=== PATIENT | female | born 1970 | race Caucasian/White ===

== ENCOUNTER 2021-02-01 11:48 | Emergency (ER) | payer MEDICAID, SELFPAY ==
[2021-02-01 11:56] VITALS: BP 136/82; BP 144/88; PULSE 82; PULSE 96; RESP 18; TEMP 36.8; O2SAT 99; BMI 40.4
--- NOTE | 2021-02-01 12:44 | ED.GENADULT ---
HPI - General Adult General Chief complaint: Psychiatric Symptoms Stated complaint: crisis Time Seen by Provider: 02/01/21 12:32 Source: patient Mode of arrival: EMS Limitations: no limitations History of Present Illness HPI narrative: 50-year-old female who presents emergency department for evaluation of depression and suicidal ideation. Patient states that she has been depressed for approximately 3 days. She states that her depression became worse last night to the point where she wants to kill herself. She states that she plans on stabbing herself with a knife. She states that she has had multiple suicide attempts in the past, she states she has tried to jump in front of a car, she has tried to take an overdose of pills and she has tried to drink herself to . Patient states that she has been hospitalized for psychiatric condition in the past and was hospitalized approximately 6 months prior at [facility]. The patient states that she lives in [facility] she states she staying in a women's senior care. She states she came to [place] to go to bars in clubs with her friends. She states that her friends left ear here in [place] and she has been staying with some people that she met in [place]. She states that she has been drinking heavily, 1 pt vodka per day for the last 3 days and this is made her depression worse. She also states that she used crack cocaine for 1 day, 3 days prior to evaluation. She believes that the cocaine uses made her depression worse as well. She denied fever, chills, chest pain, shortness of breath, nausea, vomiting or diarrhea. Patient does have a history of depression and PTSD. Related Data Home Medications Medication Instructions Recorded Confirmed albuterol sulfate [ProAir HFA] 2 puff INHALATION Q4H PRN 02/01/21 02/01/21 nncxgkmyr-hosqctvz-fgvchhx ala 1 tab PO DAILY 02/01/21 02/01/21 [Biktarvy] folic acid 1 tab PO DAILY 02/01/21 02/01/21 gabapentin 1 cap PO TID 02/01/21 02/01/21 lidocaine [Lidoderm] 1 patch TOPICAL DAILY 02/01/21 02/01/21 pantoprazole 1 tab PO DAILY 02/01/21 02/01/21 prazosin 1 cap PO DAILY 02/01/21 02/01/21 quetiapine 1 tab PO BEDTIME 02/01/21 02/01/21 Allergies Allergy/AdvReac Type Severity Reaction Status Date / Time No Known Allergies Allergy Verified 02/01/21 12:41 Review of Systems Review of Systems: Yes all other systems are reviewed and are negative [facility] Past Medical History [facility] Narrative: Patient has a history of HIV disease, stomach ulcers, depression, PTSD, sciatica. She does smoke 1 pack of cigarettes per day times many years, she drinks alcohol and she states she has been binge drinking recently, she states she has crack code cane for 1 day 3 days prior to evaluation. She lives in a women's senior care in [facility]. Medical History Depression ETOH abuse HIV (human immunodeficiency virus infection) Sciatic leg pain Surgical History Tubal ligation status Social History Social History Alcohol intake: current Alcohol intake frequency: other Alcohol type: hard liquor Smoking Status: Current every day smoker Smoked in Last 30 Days: Yes Use of substances other than those prescribed or required for medical reasons: Yes Substance Use Type: Crack/Cocaine Substance Use Frequency: Occasionally Last Used Substance: Days (ago) Any prior treatment program specific to substance use: Yes Advance Directives: No Advance Directives Information Provided: Yes Physical Exam Vital Signs: Vital Signs: Last Vital Signs Temp 97.6 F 02/01/21 16:08 Pulse 101 H 02/01/21 16:08 Resp 18 02/01/21 16:08 BP 116/71 02/01/21 16:08 Pulse Ox 97 02/01/21 16:08 Body Mass Index 40.4 Const: General: cooperative, no acute distress, alert and awake Orientation/consciousness: oriented to person and oriented to place Limitations: no limitations HENMT: Head: Yes normal to inspection, Yes normocephalic and Yes atraumatic Ears: external ears normal Eyes: General: appearance normal, both eyes and all related structures Periorbital: periorbital findings normal Eyelids: Yes eyelids normal Conjunctivae: conjunctivae normal Sclerae: sclerae normal Corneas: corneas normal Pupils: Equal, round and reactive pupils present Direct Ophthalmoscopy: normal light reflex Neck: Neck: Yes normal visual inspection and Yes supple Lymphatic: no lymphadenopathy noted Chest: Chest palpation & inspection: normal inspection of the chest and normal palpation of entire chest wall Resp: Effort & Inspection: normal respiratory effort, abnormal respiratory pattern, no audible wheezes and no respiratory distress Auscultation: clear to auscultation bilaterally, no crackles, no rales, no rhonchi and no wheezes Cardio: Rate: regular rate Rhythm: regular rhythm Heart sounds: S1 normal heart sound present, S2 normal heart sound present and Murmur heart sound present GI: Inspection: No distended Palpation (GI): Soft to palpation, nontender, no guarding and No hepatosplenomegaly present Auscultation: normal bowel sounds : General: Yes no CVA tenderness Back/Spine/Pelvis: Back: no CVA tenderness Skin: General skin exam: no rashes or lesions noted Lesions: no lesions Rashes: no rashes Wounds: no wounds Neuro: General: oriented to person and oriented to place Cranial nerves: Yes CN's II-XII intact bilaterally and Yes Equal, round and reactive pupils present Cognition (Neuro): normal cognition Motor exam (neuro): 5/5 motor strength present throughout Extrem: General: Yes normal to inspection, Yes full ROM, Yes no pedal edema and Yes no calf tenderness Psych: Appearance: grossly normal Mental Status: mental status grossly normal Speech and movement: Clear speech present Affect: normal affect Thought process: Normal thought process present Course Course Course Narrative: 50-year-old female with history of depression, PTSD, alcohol use disorder and cocaine use disorder who presents emergency department for evaluation of depression x3 days and suicidal ideation x1 day with a plan to stab herself. Patient is also complaining of left hip pain secondary to her sciatica and she states that she has not taken her medications in 3 days. Patient's physical examination was unremarkable. I did order a urine test and urine tox screen on the patient. The patient's pain will be treated with Tylenol 975 mg orally and gabapentin 1200 mg orally (this is the dose of gabapentin that she takes as an outpatient for her sciatica). She was also given a nicotine patch. The patient is medically cleared and will need to be evaluated by crisis. 1634: The patient's urinalysis was positive for benzodiazepines and cocaine. Urine test was negative. The patient is waiting for crisis evaluation. At the end of my shift, the patient's care was turned over to my colleague, Dr. Hernandez. Medical Decision Making Lab Data Labs: Lab Results 02/01/21 02/01/21 Range/Units 15:33 15:33 Urine Test NEGATIVE (NEGATIVE) Urine Opiates Screen Not Detected (Not Detect) Ur Barbiturates Screen Not Detected (Not Detect) Ur Phencyclidine Scrn Not Detected (Not Detect) Ur Amphetamines Screen Not Detected (Not Detect) U Benzodiazepines Scrn POSITIVE H (Not Detect) Urine Cocaine Screen POSITIVE H (Not Detect) U Marijuana (THC) Screen Not Detected (Not Detect) Discharge Plan Discharge Prescriptions: No Action gabapentin 400 mg capsule 1 cap PO TID RF: 0 prazosin 5 mg capsule 1 cap PO DAILY RF: 0 pantoprazole 40 mg tablet,delayed release (DR/EC) 1 tab PO DAILY RF: 0 lidocaine [Lidoderm] 5 % adhesive patch,medicated 1 patch topical DAILY RF: 0 folic acid 1 mg tablet 1 tab PO DAILY RF: 0 albuterol sulfate [ProAir HFA] 90 mcg/actuation HFA aerosol inhaler 2 puff inhalation Q4H PRN (Reason: Wheezing) RF: 0 quetiapine 150 mg tablet extended release 24 hr 1 tab PO BEDTIME RF: 0 Biktarvy 50-200-25 mg tablet 1 tab PO DAILY RF: 0
[2021-02-01] MEDS: Nicotine 21 MG PATCH.TD24 TRANSDERMA (13:07)
[2021-02-01] MEDS: Acetaminophen 325 MG TABLET 975 MG PO (13:08)
[2021-02-01] MEDS: Gabapentin 600 MG TABLET 1200 MG PO (13:08)
--- NOTE | 2021-02-01 13:28 | PC.NURSE ---
Pt reports SI to this RN, confirms plan explained to triage nurse. States h/o same, last episode 1 year ago. Lives in [place] but here visiting a friend and unable to get back home d/t no transportation. Given food and meds ordered, Nicotine patch to L arm Calm and cooperative. Faxed to [facility], will call to confirm fax sent
[2021-02-01 15:01] VITALS: BP 97/64; PULSE 107; RESP 17; TEMP 36.7; O2SAT 91
[2021-02-01 15:48] LABS: UPreg QC Valid YES; Urine Pregnancy NEGATIVE (NEGATIVE)
[2021-02-01 16:08] VITALS: BP 116/71; PULSE 101; RESP 18; TEMP 36.4; O2SAT 97
[2021-02-01 16:13] LABS: Amphetamine Screen Urine Not Detected (Not Detect); Barbiturates, Urine Not Detected (Not Detect); Benzodiazepines Screen Urine POSITIVE (Not Detect); Cannabinoid Screen Urine Not Detected (Not Detect); Cocaine Screen Urine POSITIVE (Not Detect); Opiate Screen Urine Not Detected (Not Detect); Phencyclidine Screen Urine Not Detected (Not Detect)
--- NOTE | 2021-02-01 17:32 | PC.NURSE ---
Pt sleeping, awakes and occasionally asking for snacks but [place] =K TO SLEEP. aWAITING n ARRIVAL
[2021-02-01 18:14] VITALS: BP 126/76; PULSE 105; RESP 18; TEMP 36.8; O2SAT 98
[2021-02-01 22:46] VITALS: BP 124/72; PULSE 98; RESP 20; TEMP 36.7; O2SAT 95
--- NOTE | 2021-02-01 23:34 | PC.NURSE ---
Pt escorted back to the Pod with staff from [facility]. Pt given a chair and provided accomodation in the main area but is refusing as she is requesting a bed. RN Franky Vail spoke with the pt briefly regarding her concerns. This RN called [facility] to confirm they received the fax from earlier however the N worker denied having any referral forms for this member despite having many others from our facility. Per the N worker she will contact her software engineering supervisor to make sure that the software engineering supervisor does not have the referral and/or is aware. Pt remains calm and cooperative right now as she sits in a chair next to the nurses station with eyes closed, respirations even and unlabored without distress noted. RN will refax to [facility] in the event the previous fax cannot be found.
--- NOTE | 2021-02-01 23:41 | PC.NURSE ---
Return call received from [facility] crisis who confirmed that the pt was evaluated by [facility] earlier today and is currently a bedsearch. This RN requested that the [facility] report be sent over to the [facility] POD Printer and she confirmed. Plan at this time if for the patient to be relocated to ED bed 5 once cleaned as the room is newly available/vacant.
--- NOTE | 2021-02-02 00:23 | PC.NURSE ---
PT was transferred to the pod. PT insisted that she could not sleep in a recliner because of her sciatica. PT was transferred to a room in the main ED that has a stretcher bed.
[2021-02-02] MEDS: Gabapentin 400 MG CAPSULE PO ×4 (01:45→20:58)
[2021-02-02 03:14] VITALS: RESP 16
[2021-02-02 05:17] VITALS: RESP 16
--- NOTE | 2021-02-02 07:14 | PC.NURSE ---
Report recieved. PT currently watching tv, calm and cooperative. PT waiting to be seen by N.
[2021-02-02] MEDS: QUEtiapine Fumarate 25 MG TABLET 75 MG PO ×2 (08:56→20:58)
[2021-02-02 08:57] VITALS: BP 131/79; PULSE 100
[2021-02-02] MEDS: Folic Acid 1 MG TABLET PO (08:57)
[2021-02-02] MEDS: Prazosin HCL 5 MG CAPSULE PO (08:57)
[2021-02-02] MEDS: Omeprazole 20 MG CAPSULE.DR PO (09:00)
[2021-02-02 09:08] VITALS: BP 131/79; PULSE 100; RESP 18; TEMP 36.7; O2SAT 95
[2021-02-02] MEDS: Cyclobenzaprine HCl 10 MG TABLET PO (09:50)
[2021-02-02 10:30] LABS: MANUAL DIFF FLAG NO
[2021-02-02 10:32] LABS: COVID-19 Test Negative (Negative); IDNOW Serial# 9DD0AD1C
[2021-02-02 10:36] LABS: Basophils Percent Auto 0.6 % (0-2); Eosinophils Absolute Auto 0.1 X10*3/uL (0.0-0.4); Eosinophils Percent Auto 1.7 % (0-4); Hematocrit 38.1 % (37-47); Hemoglobin 12.1 g/dl (12.0-16.0); Imm Gran Abs Auto 0.02 X10*3/uL (0.00-0.03); Imm Gran Pct Auto 0.3 % (0.0-0.4); Lymphocytes Absolute Auto 2.4 X10*3/uL (1.2-4.9); Mean Corpuscular HGB Conc 31.8 g/dl (31.0-35.0); Mean Corpuscular Hemoglobin 28.6 pg (27.0-33.0); Mean Corpuscular Volume 90.1 fL (80-98); Mean Platelet Volume 11.3 fL (9.4-12.3); Monocytes Absolute Auto 0.6 X10*3/uL (0.1-1.2); Monocytes Percent Auto 8.2 % (2-11); Neutrophils Absolute Auto 3.9 X10*3/uL (2.0-8.3); Neutrophils Percent Auto 55.2 % (45-73); Platelet Count 327 X10*3/uL (160-400); Red Blood Count 4.23 X10*6/uL (4.20-5.50); Red Cell Distribution Width 14.4 % (11.0-16.0); White Blood Count 7.1 X10*3/uL (4.8-10.8)
[2021-02-02 11:00] LABS: Alanine Aminotransferase 19 U/L (0-31); Albumin Level 4.5 g/dL (3.5-5.0); Alkaline Phosphatase 86 U/L (39-117); Anion Gap 14 (12-20); Aspartate Amino Transferase 14 U/L (5-31); Bilirubin Total 0.4 mg/dL (0.0-1.0); Blood Urea Nitrogen 18 mg/dL (9-16); Calcium 9.8 mg/dL (8.4-10.2); Carbon Dioxide 28 mmol/L (22-29); Chloride 102 mmol/L (96-108); Creatinine Clr Calc Pharmacy 83.4; Estimated Glomerular Filt Rate > 60; Glucose Random 128 mg/dL (60-115); Potassium 3.5 mmol/L (3.3-5.1); Sodium 140 mmol/L (135-145); Total Protein 7.8 g/dL (6.5-8.0)
[2021-02-02 17:08] VITALS: BP 106/64; PULSE 95; RESP 18; TEMP 37.1; O2SAT 98
--- NOTE | 2021-02-02 19:49 | PC.NURSE ---
Report received. PT is laying in bed watching TV. Calm and cooperative. PT is inpatient bed search.
--- NOTE | 2021-02-02 21:11 | PC.NURSE ---
PT complaining of nausea, vomiting, and heartburn. Provider made aware. PT asked this nurse to hold her night meds until after she took something for the nausea.
[2021-02-02] MEDS: Magnesium Hydrox/Alum Hydrox 30 ML ORAL.SUSP PO (21:14)
[2021-02-03 01:46] VITALS: BP 126/71; PULSE 106; RESP 18; TEMP 36.7; O2SAT 98
--- NOTE | 2021-02-03 07:06 | PC.NURSE ---
Report recieved. PT currently sleeping, respirations even and unlabored, in no apparent distress. Pt is inpatient bedsearch.
[2021-02-03 09:53] VITALS: BP 100/57; PULSE 76; RESP 16; TEMP 36.3; O2SAT 95
[2021-02-03 10:03] VITALS: BP 100/57; PULSE 76
[2021-02-03] MEDS: Cyclobenzaprine HCl 10 MG TABLET PO (10:03)
[2021-02-03] MEDS: Folic Acid 1 MG TABLET PO (10:03)
[2021-02-03] MEDS: Gabapentin 400 MG CAPSULE PO ×2 (10:03→15:17)
[2021-02-03] MEDS: Omeprazole 20 MG CAPSULE.DR PO (10:03)
[2021-02-03] MEDS: QUEtiapine Fumarate 25 MG TABLET 75 MG PO (10:03)
[2021-02-03] MEDS: Prazosin HCL 5 MG CAPSULE PO (10:03)
[2021-02-03] MEDS: Lidocaine 4 % Patch ADH..PATCH 1 PATCH TRANSDERMA (10:18)
--- NOTE | 2021-02-03 13:17 | PC.NURSE ---
Pt asleep at current, no signs of distress, RR even and unlabored.
--- NOTE | 2021-02-03 13:36 | PC.NURSE ---
[facility] at bedside for [facility]
== END 2021-02-03 15:50 | disposition home or self-care (01) ==
PROVIDERS: Physician Assistant Medical; Emergency Provider Emergency Medicine Emergency Medical Services
DX: F33.1 Major depressive disorder, recurrent, moderate (principal); R45.851 Suicidal ideations; F14.90 Cocaine use, unspecified, uncomplicated; Z20.822 Contact with and (suspected) exposure to COVID-19; F17.200 Nicotine dependence, unspecified, uncomplicated; Z79.899 Other long term (current) drug therapy; Z71.6 Tobacco abuse counseling; Z71.51 Drug abuse counseling and surveillance of drug abuser
CPT/HCPCS: 36415; 80053; 80307; 81025; 85025; 87635; 99285